=== PATIENT | female | born 1950 | race Caucasian/White ===

== ENCOUNTER 2020-12-19 09:18 | Day surgery (SDC) | payer MEDICARE, MEDICAID ==
[2020-12-19] VITALS (10 sets, daily range): BP systolic 99–164; BP diastolic 56–80
[~2020-12-19] VITALS: Ht 170.2 cm; Wt 133.8 kg
[2020-12-19] MEDS ORDERED: ceFAZolin inj. 2,000 MG in normal saline soln 50 ML IV ONE (10:15)
[2020-12-19] MEDS ORDERED: VANCOMYCIN 1,500MG in NS 300 ML IVPB IV ONE (10:15)
[2020-12-19] MEDS ORDERED: FURO40TA4 PO (10:21)
[2020-12-19] MEDS ORDERED: GLUC-150 PO (10:21)
[2020-12-19] MEDS ORDERED: OXYC-150 PO (10:21)
[2020-12-19] MEDS ORDERED: AMA1T PO (10:21)
[2020-12-19] MEDS ORDERED: UBID100C16 PO (10:21)
[2020-12-19] MEDS ORDERED: vitamin d3 PO (10:21)
[2020-12-19] MEDS ORDERED: POTA10TA36 PO (10:21)
[2020-12-19] MEDS ORDERED: iron PO (10:21)
[2020-12-19] MEDS ORDERED: AMIO200T61 PO (10:21)
[2020-12-19] MEDS ORDERED: DILT60TA41 PO (10:21)
[2020-12-19] MEDS ORDERED: FAMO20TA8 PO (10:21)
[2020-12-19] MEDS ORDERED: ATOR40TA PO (10:21)
[2020-12-19] MEDS ORDERED: TIZA4CAP PO (10:21)
[2020-12-19] MEDS ORDERED: TIOT18CA3 INH (10:21)
[2020-12-19] MEDS ORDERED: APIX5TAB3 PO (10:21)
[2020-12-19] MEDS ORDERED: ALBU18HF2 INH (10:21)
[2020-12-19] MEDS ORDERED: LIDOcaine 1% W/epiNEPHrine 1:100,000 20ml vial ONE (10:24)
[2020-12-19] MEDS ORDERED: vancomycin 1,000mg inj ONE (10:24)
[2020-12-19] MEDS ORDERED: cefazolin/dext.iso 2gm/100ml 100 ML IV ONE (10:25)
[2020-12-19] MEDS ORDERED: ceFAZolin 1GM/D5W- ADD-VANTAGE 50 ML IV ONE (10:30)
[2020-12-19 11:05] LABS: BASOPHILS % (AUTO) 0.5 % (0-1); EOSINOPHILS # (AUTO) 0.1 X10'3 (0-0.9); EOSINOPHILS % (AUTO) 1.1 % (0-6); HEMATOCRIT 36.1 % (35.0-45.0); HEMOGLOBIN 11.7 g/dl (12.0-16.0); LYMPHOCYTES # (AUTO) 1.6 X10'3 (1.1-4.8); MEAN CORPUSCULAR HGB CONC 32.3 g/dL (33.0-36.5); MEAN CORPUSCULAR VOLUME 95.7 FL (78-98); MEAN PLATELET VOLUME 7.7 FL (7.4-10.4); MONOCYTES # (AUTO) 0.8 X10'3 (0-0.9); NEUTROPHILS % (AUTO) 66.4 % (42-75); PLATELET COUNT 182 X10'3 (140-440); RED BLOOD COUNT 3.77 X10'6 (4.20-5.60); RED CELL DISTRIBUTION WIDTH 18.1 % (11.5-14.5); WHITE BLOOD COUNT 7.6 X10'3 (4.5-11.0)
[2020-12-19 11:12] LABS: ALBUMIN 3.5 G/DL (3.4-5.0); ANION GAP 9 (8-16); BLOOD UREA NITROGEN 37 MG/DL (7-18); CALCIUM 9.5 MG/DL (8.5-10.1); CHLORIDE 105 MMOL/L (99-107); CREATININE 1.95 MG/DL (0.40-0.90); GLUCOSE 108 MG/DL (70-104); MAGNESIUM 2.1 MG/DL (1.5-2.4); POTASSIUM 3.6 MMOL/L (3.5-5.1); SODIUM 144 MMOL/L (135-145); TOTAL CARBON DIOXIDE 30.4 MMOL/L (24-32); eGFR 25 ML/MIN
[2020-12-19] MEDS ORDERED: proCHLORperazine 10 MG/2 ml inj ONE (11:25)
[2020-12-19] MEDS ORDERED: fentaNYL/PF 50MCG/1 ML 2ML syringe ONE ×3 (11:25→12:03)
[2020-12-19] MEDS ORDERED: midazolam 1 mg/ML 2ml injection ONE ×4 (11:25→12:10)
[2020-12-19] MEDS ORDERED: iohexol 350 MG/ML 50ML vial IV ONE (11:38)
[2020-12-19] MEDS ORDERED: diphenhydrAMINE 50 mg/ml inj ONE (12:11)
[2020-12-19] MEDS ORDERED: normal saline 1000ml 1,000 ML IV SCH (13:20)
--- NOTE | 2020-12-19 15:25 | NUR ---
Dr. Tomas called, he reviewed cxr and is comfortable with the pt being discharged. per DO CXR no pneumothorax.
== END 2020-12-19 16:30 | disposition home or self-care (01) ==
LOC: SSTAY O 09:18
PROVIDERS: ATTEND Internal Medicine Cardiovascular Disease
DX: I49.5 Sick sinus syndrome (principal); I10 Essential (primary) hypertension; I45.10 Unspecified right bundle-branch block; I48.0 Paroxysmal atrial fibrillation; G47.30 Sleep apnea, unspecified; E78.5 Hyperlipidemia, unspecified; E11.9 Type 2 diabetes mellitus without complications; J45.909 Unspecified asthma, uncomplicated; K21.9 Gastro-esophageal reflux disease without esophagitis; M19.90 Unspecified osteoarthritis, unspecified site; D64.9 Anemia, unspecified; E66.01 Morbid (severe) obesity due to excess calories; Z68.42 Body mass index [BMI] 45.0-49.9, adult; Z79.01 Long term (current) use of anticoagulants; Z79.899 Other long term (current) drug therapy; Z90.49 Acquired absence of other specified parts of digestive tract; Z98.890 Other specified postprocedural states; Z85.828 Personal history of other malignant neoplasm of skin; Z90.5 Acquired absence of kidney; Z87.891 Personal history of nicotine dependence; Z88.2 Allergy status to sulfonamides; Z88.8 Allergy status to other drugs, medicaments and biological substances; Z82.49 Family history of ischemic heart disease and other diseases of the circulatory system
CPT/HCPCS: 33208; 36415; 71045; 80048; 82948; 83735; 85025; 85610; 93005; 99152; 99153; C1785; C1894; C1898; J0780; J1200; J2250; J3010; J3370; Q9967; A4565; A4620